=== PATIENT | female | born 1980 | race Caucasian/White ===

== ENCOUNTER 2023-06-25 17:06 | Emergency (ER) | payer BC, SELFPAY ==
[2023-06-25 17:13] VITALS: BP 156/96
[2023-06-25 17:36] LABS: % Basophils 0.5 % (0-2); % Eosinophils 1.8 % (0-6); % Immature Granulocytes 0.2 % (0-0.5); % Lymphocytes 49.4 % (20.5-51.1); % Monocytes 9.4 % (1.7-9.3); % Neutrophils 38.7 % (42.2-75.2); Absolute Eosinophils 0.1 10^3/uL (0-0.7); Absolute Lymphocytes 2.9 10^3/uL (1.2-3.4); Absolute Monocytes 0.6 10^3/uL (0.1-0.6); Absolute Neutrophils 2.3 10^3/uL (1.4-6.5); Hematocrit 36.8 % (37.0-47.0); Hemoglobin 12.4 g/dL (12.0-16.0); Mean Corp Hgb Conc. 33.7 g/dL (33.0-37.0); Mean Corpuscular Hgb 30.2 pg (27.0-31.0); Mean Corpuscular Volume 89.5 fL (81.0-99.0); Mean Platelet Volume 9.2 fL (7.4-10.4); Nucleated Red Blood Cells % 0 %; Platelet Count 451 10^3/uL (130-400); Red Blood Cell Count 4.11 10^6/uL (4.20-5.40); Red Cell Dist. Width 14.8 % (11.5-14.5)
[2023-06-25 18:00] LABS: HCG, Serum Qualitative Screen Negative
[2023-06-25 18:04] LABS: ALT (SGPT) 31 U/L (0-35); AST (SGOT) 32 U/L (14-36); Albumin 4.1 g/dl (3.5-5.0); Alkaline Phosphatase 81 U/L (38-126); Blood Urea Nitrogen 14 mg/dl (7-17); Calcium 9.7 mg/dl (8.4-10.2); Carbon Dioxide 24 mmol/L (22-30); Chloride 106 mmol/L (98-107); Glucose 99 mg/dl (70-99); Potassium 3.9 mmol/L (3.5-5.1); Sodium 141 mmol/L (135-145); Total Bilirubin 0.6 mg/dl (0.2-1.3); Total Protein 7.5 g/dl (6.3-8.2); eGFR > 60.00
--- NOTE | 2023-06-25 19:21 | ED.GENMED ---
History of Present Illness
General
Chief Complaint: Cold/Flu/URI Symptoms
Source: patient
Exam Limitations: none
Time Seen by Provider: 06/25/23 18:43
Travel History
Have you had any contact with someone who has COVID-19?: No
Do you have any symptoms of coronavirus? Fever > 100 degrees, chills, cough, shortness of breath, sore throat, loss of taste or smell, muscle aches, or headache?: No
History of Present Illness
History of Present Illness:
This is a 43 year old female that comes in with c/o cold and lightheadedness. States that on Jun 02 she had COVID. States that she got over this. Then on Saturday she felt sick. States that she tested at home for COVID and this was negative.
States that she went to see the PCP as she noticed that her HR was going down into the 40's. States that he ordered an ECHO and she is to see Dr. Naqvi in July. States that he placed her on Amoxicillin for Bronchitis. States that her first dose
was Saturday night. States that today she started with some lightheadedness and her legs felt weak. States that she called the PCP and was told to come to the ER. States that she had a fever of 101-102 on Saturday. States that she had some chest
pressure on Saturday with a cough. Sates that she was nauseated and that she is not a good water drinker. Denies any recent fever, chills, chest pain, SOB, abd pain, vomiting, diarrhea, headache, urinary burning.
Past History
Past History
ED Past Medical History: Psychiatric (Anxiety) and Other (migraines, PNA, Ulcerative Colitis, C-diff, renal calculus, UTI< )
ED Past Surgical History: Urological (Bilateral ureteral stents) and Other (History of wisdom teeth extraction)
Social History
Tobacco: Non-smoker
Alcohol: Occasional
Drug: None
Personal:
Living: with family
Employment: Employed
Family History
Family History: Other (n/c)
Review of Systems
Review of Systems
All Other Systems: ROS reviewed and negative except as documented in HPI and ROS
Constitutional: Reports no symptoms; Denies fever or chills
EENT: Reports no symptoms
Respiratory: Reports cough; Denies trouble breathing
Cardiac: Denies chest pain (Saturday night pressure)
ABD/GI: Reports nausea; Denies abdominal pain, vomiting or diarrhea
: Reports no symptoms; Denies dysuria, frequency or urgency
Musculoskeletal: Reports no symptoms
Skin: Reports no symptoms
Neurological: Reports other (Lightheaded); Denies dizzy or headache
Psychiatric: Reports no symptoms
Phy Exam
General Physical Exam
General Presentation: well appearing and no apparent distress
General age: appears stated age
General Skin: warm and dry
General Habitus: normal
General Hydration: dry mucous membranes
ENT Exam
ENT Exam: TM's normal, pharynx normal and neck supple
Eye Exam
Eye Exam: EOMI
Cardiovascular Exam
Cardiovascular Exam: regular rate/rhythm, no edema, no murmur and normal peripheral pulses
Pulmonary Exam
Pulmonary Exam: lungs clear, no respiratory distress, no rales, chest non tender, no crackles, no rhonchi, no wheezing and other (Occasional Dry cough noted)
Gastrointestinal Exam
Gastrointestinal Exam: normal bowel sounds, non tender, soft, no organomegaly, no pulsatile mass and non distended
Musculoskeletal Exam
Musculoskeletal Exam: full ROM and no edema
Skin Exam
Skin Exam: normal color, warm/dry, no rash and no petechia
Psychiatric Exam
Psychiatric Exam: normal mood/affect
Course
Orders/Labs/Results
Orders:
Orders
06/25/23 17:18
Electrocardiogram (*1) Urgent
Reason for Study: Syncope
EKG- Treatment ONCE
Test Result ONCE
06/25/23 17:24
Complete Blood Count/With Diff Urgent
Comprehensive Metabolic Panel Urgent
HCG, Serum Qualitative Screen Urgent
06/25/23 19:20
0.9% Sodium Chloride 1000 ml [Nss] 1,000 ml IV BOLUS
06/25/23 19:34
COVID-19 Antigen Urgent
Source: Nasal Swab
Troponin I Urgent
Influenza A+B Rapid Molecular Urgent
EVELIA Source: Nasal Swab
Specimen Description:
Abnormal Lab Results
06/25/23
17:24
RBC 4.11 L 10^6/uL
(4.20-5.40)
Hct 36.8 L %
(37.0-47.0)
RDW 14.8 H %
(11.5-14.5)
Plt Count 451 H 10^3/uL
(130-400)
Neutrophils % 38.7 L %
(42.2-75.2)
Monocytes % 9.4 H %
(1.7-9.3)
06/25/23 17:24
06/25/23 17:24
Plt slightly elevated. Otherwise labs normal. HCG negative. COVID negative. Influenza B positive.
Vital Signs
Initial and Last Documented VS:
Initial Vital Signs
Temp Pulse Resp BP Pulse Ox
98.5 F 86 18 156/96 99
06/25/23 17:13 06/25/23 17:13 06/25/23 17:13 06/25/23 17:13 06/25/23 17:13
Last Documented Vital Signs
Temp Pulse Resp BP Pulse Ox
98.5 F 86 18 156/96 99
06/25/23 17:13 06/25/23 17:13 06/25/23 17:13 06/25/23 17:13 06/25/23 17:13
MDM/Problems Addressed
Differential Diagnosis Includes:
Viral syndrome. Influenza, COVID
MDM/Problems Addressed:
This is a 43 year old female that comes in with c/o cold like symptoms. Today patient felt lightheaded and her legs felt weak. Patient called the PCP and was told to come to the ER for a cardiac work up. States that she hasn't had a fever since
Saturday. States that she had chest pressure on Saturday night and that she has a cough. States that she is not a good water drinker.
Will check labs and give IV fluids. Check for COVID and Influenza.
Back into see patient. Explained that she has Influenza B. This is a viral illness. Patient to increase her water intake to 8-8oz glasses daily. Explained that the antibiotic is not really going to help her. Patient to use Tylenol or Ibuprofen for
fever or body aches. Follow up with the family doctor as needed. Return with any concerns.
Chronic conditions affecting care:
NA
Acute Exacerbation and/or Progression of Chronic Illness:
NA
*Pulse Oximetry
Patient hypoxic: no
*EKG
Interpreted by ED Provider?: Yes
Heart Rate: 79
Rate: normal
Rhythm: sinus
[place] Path: normal axis
Interval: normal interval
QRS Pattern: normal QRS
Ischemia: no ischemia
*Poultry Farmer Meat Interpretation
Rate: Poultry Farmer Meat- N/A
*Critical Care Note
Total Time (30-74mins, 75-104mins- exclusive of procedures): Not Applicable
ED Attending Note
-
Portions of this chart may have been created with voice recognition software.� Occasional wrong word or��sound alike� substitutions may have occurred due to the inherent limitations of voice recognition software.
Discharge Plan
Departure
Patient Disposition: Home (Routine Discharge)
Date of Disposition: 06/25/23
Time of Disposition: 20:42
Patient with high blood pressure during this ER visit?: Yes
Condition: Good
Covid-19: Negative COVID-19
Discharge Problem:
Influenza B
Instructions: Flu, Adult (DC), BLOOD PRESSURE
Prescriptions:
No Action
mesalamine 60 ML enema
60 ml OH HSPRN PRN (Reason: blood in stool)
sulfasalazine 500 MG tablet
2,000 mg PO BID
zolmitriptan 5 MG tablet
5 mg PO DAILYPRN PRN (Reason: migraines)
folic acid 1 MG tablet
1 mg PO DAILY
ergocalciferol (vitamin D2) 50,000 UNITS capsule
50,000 units PO TU
acetaminophen [Tylenol Extra Strength] 500 MG tablet
1,000 mg PO TIDPRN PRN (Reason: mild pain)
amitriptyline 10 MG tablet
10 mg PO HS
metronidazole 500 MG tablet
500 mg PO TID Qty: 12 0RF
levofloxacin 750 MG tablet
750 mg PO DAILY Qty: 5 0RF
Referrals:
Chaparro Chawla MD [Family Provider] - As needed
Activity Restrictions/Additional Instructions:
As discussed, you have Influenza B. This is a viral illness. The antibiotic will not help. Please increase your water intake to 8-8oz glasses daily. Tylenol or Ibuprofen as needed for any fever or body aches. Follow up with the family doctor as
needed. IF YOU HAVE ANY OTHER CONCERNS PLEASE RETURN TO THE EMERGENCY ROOM.
Interventions
Interventions:
*Risk Screen - Suicide Last Done: 06/25/23 17:13
*General Assessment Last Done: 06/25/23 17:13
*Neglect/Abuse Screening Last Done: 06/25/23 17:13
ED- Pulmonary Assessment Last Done: 06/25/23 19:52
[2023-06-25] MEDS: NSS 1000 IV (19:48)
[2023-06-25 20:18] LABS: COVID-19 Antigen Negative (Negative)
[2023-06-25 20:23] LABS: Troponin I < 0.012 ng/ml
[2023-06-25 20:54] VITALS: BP 131/86
== END 2023-06-25 20:55 | disposition home or self-care (01) ==
LOC: EMR 17:06
PROVIDERS: Clinical Nurse Specialist Family Health; Emergency Medicine; EMERGENCY PHYSICIAN Emergency Medicine; FAMILY PHYSICIAN Family Medicine
DX: J10.1 Influenza due to other identified influenza virus with other respiratory manifestations (principal); R03.0 Elevated blood-pressure reading, without diagnosis of hypertension; R42 Dizziness and giddiness; R53.1 Weakness; R11.0 Nausea; J40 Bronchitis, not specified as acute or chronic; Z11.52 Encounter for screening for COVID-19; F41.9 Anxiety disorder, unspecified; G43.909 Migraine, unspecified, not intractable, without status migrainosus; K51.90 Ulcerative colitis, unspecified, without complications; Z87.442 Personal history of urinary calculi; Z87.440 Personal history of urinary (tract) infections; Z87.01 Personal history of pneumonia (recurrent)
CPT/HCPCS: 99284; 96360; 80053; 84484; 84703; 85025; 87502; 87811; 93005

== ENCOUNTER → 2023-07-27 07:10 | Outpatient (REF) | payer BC, SELFPAY | LOC: RCS 07:10 | PROVIDERS: ATTENDING PHYSICIAN Family Medicine; FAMILY PHYSICIAN Family Medicine | DX: R00.2 Palpitations (principal) | CPT/HCPCS: 93306 ==

== ENCOUNTER → 2024-06-24 06:32 | Outpatient (REF) | payer BC, SELFPAY | LOC: HWWDC 06:32 | PROVIDERS: ATTENDING PHYSICIAN Obstetrics & Gynecology; FAMILY PHYSICIAN Family Medicine | DX: Z12.31 Encounter for screening mammogram for malignant neoplasm of breast (principal) | CPT/HCPCS: 77063; 77067 ==